=== PATIENT | male | born 1975 | race Two or more races ===

== ENCOUNTER 2020-10-22 21:54 | Emergency (ER) | payer MEDICAID ==
[~2020-10-22] VITALS: Ht 162.6 cm; Wt 99.8 kg
--- NOTE | 2020-10-22 22:14 | NUR ---
Patient is resting on the bed, c/o right big toe pain, pillow placed under right foot for comfort.
[2020-10-22] MEDS ORDERED: ACETAMINOPHEN 325 MG TABLET PO ONE (22:15)
[2020-10-22] MEDS ORDERED: BENA40TA8 PO (22:19)
[2020-10-22] MEDS ORDERED: INSU100I26 SQ (22:19)
--- NOTE | 2020-10-22 22:20 | NUR ---
X-ray tech in room with patient.
[2020-10-22] MEDS ORDERED: ACETAMINOPHEN 325 MG TABLET ONE (22:24)
[2020-10-22 23:30] VITALS: BP 147/85
--- NOTE | 2020-10-22 23:30 | NUR ---
Patient discharged to home in stable condition. Written and verbal after care instructions given. Patient verbalizes understanding of instructions. Stressed follow up or return to ER for worsening s/s. Patient ambulates without difficulty with surgical shoe, received discharge paperwork, and left with all his belongings.
== END 2020-10-22 23:30 | disposition home or self-care (01) ==
LOC: ER 21:54
DX: S92.421A Displaced fracture of distal phalanx of right great toe, initial encounter for closed fracture (principal); W11.XXXA Fall on and from ladder, initial encounter; Y92.89 Other specified places as the place of occurrence of the external cause; Y99.0 Civilian activity done for income or pay; E11.9 Type 2 diabetes mellitus without complications; Z79.4 Long term (current) use of insulin; R03.0 Elevated blood-pressure reading, without diagnosis of hypertension
CPT/HCPCS: 73660; A4663